=== PATIENT | male | born 1945 | race Caucasian/White ===

== ENCOUNTER 2018-10-17 05:10 | Outpatient (CLI) | payer MEDICARE, BC ==
[2018-10-17 17:39] LABS: Hemoglobin 14.6 g/dL (14.0-18.0); Mean Corpuscular HGB CONC 33.8 g/dL (32.0-36.0); Mean Corpuscular Hemoglobin 30.2 pg (27.0-31.0); Mean Corpuscular Volume 89.3 fL (78.0-98.0); Mean Platelet Volume 6.9 fL (7.4-10.4); Platelet Count 214 thou/uL (130-400); RBC Distribution Width 12.8 % (11.5-14.5); Red Blood Cell (RBC) Count 4.83 mill/uL (4.70-6.10); White Blood Cell (WBC) Count 8.7 thou/uL (4.8-10.8)
[2018-10-17 18:06] LABS: Anion Gap 11 mmol/L (10-20); BUN (Urea Nitrogen) 19 mg/dL (8.4-25.7); Calc. Creatinine Clearance 0 mL/min (70-130); Calcium 9.8 mg/dL (7.8-10.44); Carbon Dioxide 29 mmol/L (23-31); Chloride 103 mmol/L (98-107); Estimated GFR-MDRD 54; Glucose 110 mg/dL (83-110); Potassium 3.9 mmol/L (3.5-5.1); Sodium 139 mmol/L (136-145)
--- NOTE | 2018-10-20 16:34 | EKG ---
Test Reason : Blood Pressure : / mmHG Vent. Rate : 063 BPM Atrial Rate : 063 BPM P-R Int : 162 ms QRS Dur : 090 ms QT Int : 422 ms P-R-T Axes : 011 002 005 degrees QTc Int : 431 ms Sinus rhythm with Premature atrial complexes Minimal voltage criteria for LVH, may be normal variant Borderline ECG When compared with ECG of 31-OCT-2015 10:13, (Unconfirmed) Premature atrial complexes are now Present Confirmed by DR. Luis Angel DAI ([id number]) on 10/20/2018 4:33:45 PM Referred By: JASPER Confirmed By:DR. Luis Angel DAI
== END 2018-10-17 05:11 | disposition home or self-care (01) ==
LOC: LABBT 05:10
PROVIDERS: ATTEND Urology
DX: Z01.818 Encounter for other preprocedural examination (principal); Z12.5 Encounter for screening for malignant neoplasm of prostate; N40.1 Benign prostatic hyperplasia with lower urinary tract symptoms; N41.1 Chronic prostatitis; R39.14 Feeling of incomplete bladder emptying
CPT/HCPCS: 80048; 81001; 85027; 87086; 93005; 93010

== ENCOUNTER 2018-11-22 03:20 | Outpatient (CLI) | payer MEDICARE, BC ==
[2018-11-22 10:15] LABS: #Eosinphils 0.2 thou/uL (0.0-0.7); #Lymphocytes 1.8 thou/uL (1.20-3.40); #Monocytes 0.5 thou/uL (0.11-0.59); #Neutrophils 3.9 thou/uL (1.40-6.50); %Basophils 0.7 % (0.0-1.0); %Eosinophils 3.5 % (0.0-10.0); %Lymphocytes 27.8 % (21.0-51.0); %Monocytes 7.4 % (0.0-10.0); %Neutrophils 60.7 % (42.0-75.0); Mean Corpuscular HGB CONC 33.7 g/dL (32.0-36.0); Mean Corpuscular Hemoglobin 30.1 pg (27.0-31.0); Mean Corpuscular Volume 89.3 fL (78.0-98.0); Mean Platelet Volume 7.1 fL (7.4-10.4); Platelet Count 219 thou/uL (130-400); RBC Distribution Width 12.7 % (11.5-14.5); Red Blood Cell (RBC) Count 4.99 mill/uL (4.70-6.10); White Blood Cell (WBC) Count 6.4 thou/uL (4.8-10.8)
[2018-11-22 10:20] LABS: Prothrombin Time 13.1 SEC (12.0-14.7)
[2018-11-22 10:39] LABS: ALT (SGPT) 28 U/L (8-55); AST (SGOT) 20 U/L (5-34); Albumin 4.2 g/dL (3.4-4.8); Alkaline Phosphatase 64 U/L (40-150); Anion Gap 12 mmol/L (10-20); BUN (Urea Nitrogen) 17 mg/dL (8.4-25.7); Bilirubin, Total 0.8 mg/dL (0.2-1.2); Calc. Creatinine Clearance 0 mL/min (70-130); Calcium 9.9 mg/dL (7.8-10.44); Carbon Dioxide 27 mmol/L (23-31); Chloride 104 mmol/L (98-107); Estimated GFR-MDRD 56; Glucose 137 mg/dL (83-110); Potassium 3.8 mmol/L (3.5-5.1); Protein, Total 7.2 g/dL (5.8-8.1); Sodium 139 mmol/L (136-145)
== END 2018-11-22 03:21 | disposition home or self-care (01) ==
LOC: LABBT 03:20
PROVIDERS: ATTEND Internal Medicine Cardiovascular Disease
DX: Z01.812 Encounter for preprocedural laboratory examination (principal); R07.9 Chest pain, unspecified
CPT/HCPCS: 80053; 85025; 85610; 85730

== ENCOUNTER 2018-11-24 05:59 | Day surgery (SDC) | payer MEDICARE, BC ==
[2018-11-22 08:52] VITALS: BMI 37.1
[2018-11-24] MEDS ORDERED: Heparin 10,000 UNITS/1 ML VIAL ONE ×2 (06:45→08:15)
[2018-11-24] MEDS ORDERED: Nitroglycerin 100MG/250ML BOT 250 ML ONE (06:45)
[2018-11-24] MEDS ORDERED: Verapamil 5 MG/2 ML VIAL ONE (06:45)
[2018-11-24] MEDS ORDERED: Midazolam HCl 2 mg/2 ml Vial ONE (07:01)
[2018-11-24] MEDS ORDERED: Fentanyl 100 MCG/2 ML VIAL ONE (07:01)
[2018-11-24] MEDS ORDERED: Iopamidol 370 76% 100 ML VIAL ONE (08:42)
--- NOTE | 2018-11-24 15:25 | CON ---
DATE OF CONSULTATION: 11/24/2018 REQUESTING PHYSICIAN: Dr. Griffiths. PRIMARY CARE PHYSICIAN: Dr. Diogenes Lindo. CHIEF COMPLAINT: Chest pain. HISTORY OF PRESENT ILLNESS: The patient is a 73-year-old diabetic man with hypertension. For the last 2 or 3 months, he has been having exertional chest and back discomfort. He has also noticed that when he walks and gets this discomfort that it is associated with an inordinate amount of belching. He does not have any radiation of discomfort to his throat, jaws, shoulders, or arms, and does not have any associated shortness of breath, diaphoresis, or nausea. About 3 years ago, he had an episode of retrosternal chest discomfort that lasted for about 3 days and was associated with radiation discomfort to his throat. He was observed overnight here and had a negative stress test. He recently had a stress test to evaluate this that showed a resting EF of 44% and stress EF of 50%, which corresponded with an echocardiogram showing an EF of 45% to 50% PAST MEDICAL HISTORY: Significant for hypertension, diabetes, and benign prostatic hypertrophy. HOME MEDICATIONS: 1. Clonidine 0.1 mg b.i.d. 2. Maxzide (triamterene 75 mg/hydrochlorothiazide 50 mg) 1/2 tablet a day. 3. Silodosin 8 mg a day. 4. Finasteride 5 mg a day. 5. Prilosec 20 mg a day. 6. Biotin 10 mg a day. 7. He had been on metformin but has recently gotten off it because of good hemoglobin A1c control and nausea associated with metformin. SOCIAL HISTORY: He has a very distant history of smoking, having quit in 1973. ALLERGIES AND INTOLERANCES: He reports lisinopril, Norvasc, and Biaxin all cause hyperesthesias that are uncomfortable. Clindamycin causes stomach cramps. He had taken multiple rounds of ciprofloxacin for prostatitis, but says that he began developing a "tendinopathy" on the tops of his feet and quit taking it. FAMILY HISTORY: Significant for his mother having diabetes and was diagnosed with coronary disease at age 90 shortly before her . He has a brother with colon cancer and another brother with diabetes. REVIEW OF SYSTEMS: Negative for any eye, speech, facial, or extremity symptoms consistent with TIAs. It is negative for any shortness of breath or orthopnea. It is positive for urinary obstructive symptoms (he was being evaluated for a TURP when reports of this chest pain prompted cardiac evaluation), positive for burning and tingling in his feet. PHYSICAL EXAMINATION: GENERAL: He is in no distress. He is 6 feet 2 inches, weighs 274 pounds, heart rate 61, blood pressure 168/88, temperature 98.5, room air O2 saturations are 95% to 97%. HEENT: He has what appears represents xanthelasma primarily around his right eye. NECK: He has no JVD. No carotid bruits. CHEST: Clear to auscultation. HEART: He has regular rate and rhythm without murmur or gallops. ABDOMEN: Soft and nontender. He has palpable radial and femoral pulses bilaterally without bruits. He has palpable posterior tibials bilaterally and a palpable right dorsalis pedis. He has some spider type varicosities at the ankle and some mild venous stasis pigmentation changes, a little bit more prominent on the right ankle than on the left. NEUROLOGIC: Grossly nonfocal. LABORATORY DATA: Laboratory exam shows a white count of 6.4, hemoglobin 15.0, hematocrit 44.5, platelets 219,000. PT is 13.1, INR 1.0, PTT is 30.0. Electrolytes were normal. Glucose 137, BUN 17, creatinine 1.27 with an estimated GFR of 56, calcium is 9.9, protein 7.2, albumin 4.2. LFTs were normal. Triglyceride 65, cholesterol 176, LDL 141, HDL 22. His urinalysis from about a month ago showed no proteinuria. Chest x-ray from about 3 years ago, showed some slight prominence in the left pulmonary artery, otherwise was reasonably normal. Cardiac catheterization shows a right-dominant system with about 60% distal right coronary lesion and a subtotal stenosis in the proximal PDA. A relatively small posterolateral system. He has some mild calcifications in the proximal left side system with some diffuse irregularity throughout the LAD. In the proximal circumflex system he has about 60% mid LAD lesion with a subtotal stenosis of a fairly high and large first diagonal. He has about a 60% or 70% long lesion in the circumflex after a small OM2 leading to a large OM3 that goes out towards the apex. By my estimation, LVEF is around 50% with some hypokinesis or perhaps even akinesis of a segment of the inferior wall. LV pressure was 130/4 with an EDP of 11. Aortic pressure on pullback was 191/53 for a mean of 82. IMPRESSION AND PLAN: Three-vessel coronary disease in a diabetic with exertional angina. He should be low risk for surgical revascularization which should serve him quite well in the long run. He wishes to proceed at earliest mutual convenience and we will arrange for his surgery early next week. Job ID: [id number]
== END 2018-11-24 13:12 | disposition home or self-care (01) ==
LOC: CCL 05:59
PROVIDERS: ATTEND Internal Medicine Cardiovascular Disease
PROC: 4A023N7 Measurement of Cardiac Sampling and Pressure, Left Heart, Percutaneous Approach (ICD-10-PCS; principal; 2018-11-24)
PROC: B2111ZZ Fluoroscopy of Multiple Coronary Arteries using Low Osmolar Contrast (ICD-10-PCS; 2018-11-24)
DX: I25.10 Atherosclerotic heart disease of native coronary artery without angina pectoris (principal); I25.84 Coronary atherosclerosis due to calcified coronary lesion; I10 Essential (primary) hypertension; E11.9 Type 2 diabetes mellitus without complications; Z87.891 Personal history of nicotine dependence; Z79.82 Long term (current) use of aspirin; Z79.899 Other long term (current) drug therapy; Z88.1 Allergy status to other antibiotic agents; Z88.8 Allergy status to other drugs, medicaments and biological substances
CPT/HCPCS: 80061; 93458; 99152; 99153; C1769; J1644; J2250; J3010; Q9967

== ENCOUNTER 2018-11-28 05:43 | Inpatient (IN) | payer MEDICARE, BC ==
[2018-11-28] MEDS ORDERED: Heparin 5,000 UNITS/ML VIAL ONE ×2 (06:26→15:30)
[2018-11-28] MEDS ORDERED: Albumin 5% 0 ML ONE (06:28)
[2018-11-28] MEDS ORDERED: Heparin 10,000 UNITS/1 ML VIAL 30,000 UNITS in Sodium Chloride 0.9% 1,000 ML FS SCH (06:30)
[2018-11-28] MEDS ORDERED: Dexmedetomidine 200 MCG/2 ML VIAL ONE (06:45)
[2018-11-28] MEDS ORDERED: Vecuronium 10 MG VIAL ONE ×2 (06:45→15:30)
[2018-11-28] MEDS ORDERED: Midazolam HCl 5 mg/5 ml Vial ONE (06:45)
[2018-11-28] MEDS ORDERED: Fentanyl 250 MCG/5 ML VIAL ONE (06:45)
[2018-11-28] MEDS ORDERED: Norepinephrine 8 MG/0.9% NS 250 ML ONE (06:45)
[2018-11-28] MEDS ORDERED: Midazolam HCl 2 mg/2 ml Vial ONE (07:11)
[2018-11-28] MEDS ORDERED: Mag-Al 1200 mg/1200 mg/30 ML UDCUP PO PRN (07:27)
[2018-11-28] MEDS ORDERED: Hetastarch 6% 500 ML 500 ML IVPB PRN (07:27)
[2018-11-28] MEDS ORDERED: Bisacodyl 5 MG TAB PO PRN (07:27)
[2018-11-28] MEDS ORDERED: Bisacodyl 10 MG SUPP PR PRN (07:27)
[2018-11-28] MEDS ORDERED: HYDROcodone/Acetaminophen 5/325 mg Tablet PO PRN (07:27)
[2018-11-28] MEDS ORDERED: Acetaminophen 325 MG TAB PO PRN (07:27)
[2018-11-28] MEDS ORDERED: Post-Op Insulin Drip Protocol IVPB ONE (07:27)
[2018-11-28] MEDS ORDERED: Guaifenesin DM 100-10/5 ML UDCUP PO PRN (07:27)
[2018-11-28] MEDS ORDERED: hydrALAZINE 20 MG/ML VIAL SLOW IVP PRN (07:27)
[2018-11-28] MEDS ORDERED: Fentanyl 100 MCG/2 ML VIAL SLOW IVP PRN (07:27)
[2018-11-28] MEDS ORDERED: Promethazine HCl 25 MG/ML VIAL IM PRN (07:27)
[2018-11-28] MEDS ORDERED: Potassium Chloride 20 MEQ/100 ML PREMIX BAG IVPB PRN (07:27)
[2018-11-28] MEDS ORDERED: Norepinephrine 8 MG/0.9% NS 250 ML IVPB PRN (07:27)
[2018-11-28] MEDS ORDERED: Nitroglycerin 50 MG/250 ML BOT 250 ML IVPB PRN (07:27)
[2018-11-28] MEDS ORDERED: Dextrose 50% Abboject 50 ML SYRINGE SLOW IVP PRN (08:56)
[2018-11-28] MEDS ORDERED: HUMULIN R 100 UNITS in Sodium Chloride 0.9% 100 ML IVPB SCH (08:56)
[2018-11-28] MEDS ORDERED: Dextrose 5% in Water 1,000 ML IV PRN (08:56)
[2018-11-28] MEDS ORDERED: Insulin Regular 300 UNITS/3 ML VIAL ONE (10:12)
[2018-11-28 13:14] LABS: Actual Bicarbonate (HCO3a) 22.3 mEq/L (22-28); Base Excess (BEa) -4.4 mEq/L (-2.0 to +3.0); CO2 Tension 47.4 mmHg (35.0-45.0); Calcium, Ionized 1.05 mmol/L (1.12-1.30); Carboxyhemoglobin (COHb) 0.9 gm% (0.0-3.0); Hemoglobin (Hb) 13.8 g/dL (14.0-18.0); O2 Tension (PaO2) 62.1 mmHg (> 70.0); Potassium - ABG Lab 4.04 mmol/L (3.70-5.30); pH, Arterial 7.29 (7.35-7.45)
[2018-11-28 13:16] LABS: Puncture Site ALINE
[2018-11-28 13:28] LABS: INR-International Normal Ratio 1.4; PTT 30.6 SEC (22.9-36.1)
--- NOTE | 2018-11-28 13:29 | RAD ---
AP view chest. HISTORY: Postop heart surgery AP view chest obtained on 11/28/2018. Comparison made to previous exam from 11/27/2018. Sternotomy wires seen. There is a left subclavian central line in place. Mediastinal drain is in place. The patient has been intubated. The lungs are well aerated. No evidence of acute intrathoracic abnormality seen. IMPRESSION: Pulmonary vascular congestion.
[2018-11-28] MEDS: Finasteride 5 MG TAB PO SCH (13:44)
[2018-11-28] MEDS: Famotidine/PF 20 mg/2ml Vial SLOW IVP SCH ×2 (13:44→20:45)
[2018-11-28] MEDS: Aspirin 325 MG TAB PO SCH (13:44)
[2018-11-28] MEDS: Sodium Chloride 0.9% 1,000 ML IV SCH ×2 (13:44→20:45)
[2018-11-28] MEDS: Silodosin 8 MG CAP PO SCH (13:44)
[2018-11-28] MEDS: Docusate 100 MG CAP PO SCH ×2 (13:44→20:45)
[2018-11-28 13:50] LABS: Anion Gap 13 mmol/L (10-20); BUN (Urea Nitrogen) 16 mg/dL (8.4-25.7); Calc. Creatinine Clearance 103 mL/min (70-130); Calcium 7.6 mg/dL (7.8-10.44); Carbon Dioxide 21 mmol/L (23-31); Chloride 109 mmol/L (98-107); Estimated GFR-MDRD 63; Glucose 159 mg/dL (83-110); Potassium 4.2 mmol/L (3.5-5.1); Sodium 139 mmol/L (136-145)
[2018-11-28] MEDS: Fentanyl 100 MCG/2 ML VIAL SLOW IVP PRN ×4 (13:54→23:08)
[2018-11-28 14:07] LABS: Band 36 % (5-11); Hemoglobin 13.4 g/dL (14.0-18.0); Lymphocytes 4 % (21-51); MDiff Complete? YES; Mean Corpuscular HGB CONC 33.8 g/dL (32.0-36.0); Mean Corpuscular Hemoglobin 30.6 pg (27.0-31.0); Mean Corpuscular Volume 90.5 fL (78.0-98.0); Mean Platelet Volume 7.2 fL (7.4-10.4); Metamyelocyte 2 % (0-0); Monocytes 6 % (0-10); Neutrophil 51 % (42-75); Platelet Count 249 thou/uL (130-400); Platelet Morphology Comment Appears Adequate; RBC Distribution Width 12.6 % (11.5-14.5); Reactive Lymphocytes 1 % (0-10); Red Blood Cell (RBC) Count 4.39 mill/uL (4.70-6.10)
[2018-11-28] MEDS ORDERED: Sodium Chloride 0.9% 500 ML IVPB SCH (14:30)
[2018-11-28 14:33] LABS: Actual Bicarbonate (HCO3a) 17.3 mEq/L (22-28); Base Excess (BEa) -8.9 mEq/L (-2.0 to +3.0); CO2 Tension 38.6 mmHg (35.0-45.0); Calcium, Ionized 1.03 mmol/L (1.12-1.30); Carboxyhemoglobin (COHb) 1.2 gm% (0.0-3.0); Hemoglobin (Hb) 13.7 g/dL (14.0-18.0); O2 Tension (PaO2) 71.2 mmHg (> 70.0); Potassium - ABG Lab 4.07 mmol/L (3.70-5.30); pH, Arterial 7.27 (7.35-7.45)
[2018-11-28 14:35] LABS: Puncture Site LINE
[2018-11-28] MEDS ORDERED: Sodium Bicarb 50 MEQ/50 ML VIAL ONE ×2 (14:45→15:30)
[2018-11-28] MEDS ORDERED: Sodium Bicarb 50 MEQ/50 ML VIAL IVP SCH (15:00)
[2018-11-28] MEDS ORDERED: Amiodarone 450 MG, Admixture Fee 1 EACH in Dextrose 5% in Water 250 ML IVPB SCH (15:00)
[2018-11-28] MEDS ORDERED: Papaverine 60 MG/2 ML VIAL ONE (15:30)
[2018-11-28] MEDS ORDERED: Aminocaproic Acid 5 GM/20 ML VIAL ONE ×2 (15:30→15:59)
[2018-11-28] MEDS ORDERED: Cardioplegic Soln 1,000 ML BAG ONE (15:30)
[2018-11-28] MEDS ORDERED: Glycopyrrolate 0.2 MG/ML 5 ML SYRINGE ONE (15:30)
[2018-11-28] MEDS ORDERED: Thrombin 5000 UNITS/5 ML VIAL ONE (15:30)
[2018-11-28] MEDS ORDERED: Norepinephrine 4 MG/4 ML VIAL ONE (15:30)
[2018-11-28] MEDS ORDERED: Lidocaine 1% PF 5 ML VIAL ONE (15:30)
[2018-11-28] MEDS ORDERED: PROPOFOL 200 MG/20 ML VIAL ONE (15:30)
[2018-11-28] MEDS ORDERED: Calcium Chloride 1 GM/10 ML Abboject SYRINGE ONE (15:30)
[2018-11-28] MEDS ORDERED: Heparin 30,000 units/30 ml VIAL ONE ×2 (15:30→15:59)
[2018-11-28 15:49] LABS: Actual Bicarbonate (HCO3a) 19.7 mEq/L (22-28); Base Excess (BEa) -5.3 mEq/L (-2.0 to +3.0); CO2 Tension 36.5 mmHg (35.0-45.0); Carboxyhemoglobin (COHb) 1.1 gm% (0.0-3.0); Hemoglobin (Hb) 13.5 g/dL (14.0-18.0); Potassium - ABG Lab 3.85 mmol/L (3.70-5.30); pH, Arterial 7.35 (7.35-7.45)
[2018-11-28 15:50] LABS: ALV-art Gradient 234.875 (0-20); Puncture Site ALINE
[2018-11-28] MEDS ORDERED: Potassium Chloride 60 MEQ/30 ML VIAL ONE (15:59)
[2018-11-28] MEDS ORDERED: Protamine Sulfate 250 MG/25 ML VIAL ONE (15:59)
[2018-11-28] MEDS ORDERED: Nitroglycerin 50 MG/250 ML BOT ONE (15:59)
[2018-11-28] MEDS ORDERED: Mannitol 12.5 GM/50 ML ONE (15:59)
[2018-11-28] MEDS ORDERED: Magnesium 5 GM/10 ML VIAL ONE (15:59)
[2018-11-28] MEDS ORDERED: Lidocaine 2% PF 100 mg/5 ml Syringe ONE (15:59)
--- NOTE | 2018-11-28 17:59 | CON ---
DATE OF CONSULTATION: 11/28/2018 REASON FOR CONSULTATION: Post CABG. HISTORY OF PRESENT ILLNESS: Mr. Canales is a very pleasant 73-year-old white gentleman, who comes to the hospital today for a planned bypass surgery. He had a heart catheterization on Tuesday, 11/24. He was found to have multivessel disease. Dr. Santana evaluated him and scheduled him for bypass surgery earlier today. He had a stress that showed an EF of 44% at rest, went up to 50% with stress. Echo showed EF of 45% to 50% as well. He underwent the procedure earlier today. On my evaluation today, he remains intubated and sedated. PAST MEDICAL HISTORY: 1. Hypertension. 2. Diabetes. 3. BPH. 4. CAD as above. OUTPATIENT MEDICATIONS: Include: 1. Clonidine 0.1 mg b.i.d. 2. Maxzide 75/50 half tablet a day. 3. Silodosin. 4. Finasteride. 5. Prilosec. 6. Biotin. 7. Metformin. SOCIAL HISTORY: Quit smoking in 1973. No alcohol or drugs. ALLERGIES: LISINOPRIL, NORVASC, BIAXIN, CLINDAMYCIN, CIPRO. FAMILY HISTORY: Mother with diabetes and coronary artery disease at age 90. Brother with colon cancer. REVIEW OF SYSTEMS: A 12-point review of systems was done and was found to be negative unless stated in history of present illness. PHYSICAL EXAMINATION: VITAL SIGNS: Temperature 98.0, pulse 95, respiratory rate 14, saturating 97% on 50% FiO2. GENERAL: Sedated and intubated. LUNGS: Have coarse breath sounds. CARDIOVASCULAR: Distant heart sounds, two component rub. ABDOMEN: Soft. EXTREMITIES: 1+ edema. SKIN: Warm and dry. LABORATORY DATA: Laboratory work was reviewed. White count of 35, hemoglobin of 13, hematocrit of 39, platelet count of 249. Coags, ABG were reviewed. Chemistries were reviewed. Chest x-ray done post bypass showed pulmonary vascular congestion. ASSESSMENT: 1. Status post coronary artery bypass grafting. 2. Acute hypoxic respiratory insufficiency. 3. Acute systolic heart failure. 4. Coronary artery disease. 5. Diabetes. PLAN: 1. Continue supportive care for now. He was a little acidotic. He will remain on the ventilator until tomorrow. 2. Currently, he is on Levophed for hypotension. Hopefully, we will be able to wean this off overnight. 3. Aspirin and statin for life. Thank you for letting me to participate in the care of your patient. We will follow. Job ID: [id number]
--- NOTE | 2018-11-28 18:59 | OP ---
DATE OF PROCEDURE: 11/28/2018 PROCEDURE PERFORMED: Coronary artery bypass grafting x4 with left internal mammary artery to the distal LAD, reverse greater saphenous vein graft from the aorta to the diagonal to the obtuse marginal into the PDA. PREOPERATIVE DIAGNOSIS: Coronary artery disease. POSTOPERATIVE DIAGNOSIS: Coronary artery disease. SURGEON: Prery Santana MD BIOTECH PRODUCTION SPECIALIST: Tyler. ANESTHESIA: General endotracheal anesthesia. INDICATIONS: The patient is a 73-year-old diabetic man who has chest and some back discomfort on exertion associated with an inordinate amount of belching. Stress testing was abnormal and cardiac catheterization demonstrated three-vessel coronary disease with very high-grade lesions in a large diagonal and in a PDA and more modest lesions in the proximal LAD and the circumflex system. He is now taken to the operating room for revascularization. FINDINGS: Pump time 97 minutes. Cross-clamp time 43 minutes. The TERRIE had a distal dissection, otherwise was of good quality. Saphenous vein was of good quality. All of the coronaries were diffusely involved with firm leathery plaque. The LAD was grafted near the apex at a relative soft spot of about 1 to 1.5 mm vessel. The diagonal and OM were about 2 mm. The PDA was grafted fairly distally and was a 1.5 mm vessel. The pericardium was closed. NARRATIVE REPORT: After informed consent was obtained, the patient was taken to the operating room, placed in supine position on the operating table. After the induction of general anesthesia, the patient's saphenous vein in his left lower extremity was ultrasonographically mapped and marked. His left upper chest was prepped and draped in sterile fashion and a triple lumen central line kit was used to place a left subclavian line through the Seldinger technique. All 3 ports easily aspirated and flushed. The line was secured. The patient's torso, groins, and lower extremities were prepped and draped in sterile fashion. Saphenous vein was exposed a little above the knee using that as a port site. It was then endoscopically harvested from groin to mid calf using stab incisions for the proximal and distal ligation and division points, it was prepared for use as a graft and the port site was closed in layers of subcutaneous and subcuticular Vicryl. A median sternotomy was performed. The left internal mammary artery was mobilized as a skeletonized in-situ graft from the level of the xiphoid to the level of the subclavian vein through an extrapleural exposure. The patient was heparinized and the mammary was ligated and divided distally. There was good flow through the mammary. Very distally, it was small, but after instillation with papaverine solution it all appeared to be of reasonably good size except the most extreme distal tip. The TERRIE retractor was placed with a Steward retractor. The medial reflections of the pleura were mobilized from apex to the hilum and then the pericardium was opened and marsupialized. The aorta was palpated and was soft. A double concentric pursestring of 2-0 Ethibond was placed in the ascending aorta just beyond the pericardial reflection and a single pursestring was placed in the right atrial appendage. Aortic and venous cannulae were inserted and secured by their pursestrings. Cardiopulmonary bypass was instituted and the patient was systemically cooled. The plane between the aorta and the pulmonary artery was developed. The heart was examined. The vessels to be bypassed were identified. A longitudinal slit was made in the pericardium anterior to the left phrenic nerve through which the mammary could be passed. An aortic cross-clamp was applied and cardioplegia was administered through an aortic root needle. When arrest had been achieved, attention was turned to the PDA. It was exposed and opened with a Wheat[place] blade and Gratiot scissors and reverse greater saphenous vein was anastomosed there end-to-side with running Prolene suture. Testing the anastomosis by flushing cold cardioplegia down the graft. Attention was then turned to the obtuse marginal and the diagonal, which were each grafted in a similar fashion. The LAD was then opened. The plaque was more diffusely involved on the LAD when the other coronaries were somewhat firmer. It was opened fairly distally near the apex at a relative soft spot. Distally, there was some eccentric spiraling plaque. The distal tip of the mammary which had been clipped was transected and it could be appreciated that there was a distal dissection. The spatulation was extended sufficiently proximally to be able to excise the dissected portion. It was then anastomosed to the LAD end-to-side with running 7-0 Prolene. Doppler interrogation identified flow in LAD both distally and proximally from the anastomosis. The aortic cross-clamp was replaced with a partial occluding clamp and aortotomy was made in the ascending aorta with a scalpel and punch incorporating the root needle site for one of its aortotomies. The PDA graft was anastomosed to the most proximal aortotomy and the diagonal and OM grafts were anastomosed to the middle and distal aortotomies respectively. All three anastomoses were marked with small hemoclips. The partial occluding clamp was removed and the vein grafts were de-aired. The bulldogs were removed from them and the anastomoses were inspected for hemostasis. A posterior pericardial drain was brought out through a separate incision and secured with a suture. Right atrial and right ventricular temporary epicardial pacing wires were placed. The patient was then from cardiopulmonary bypass. Aortic and venous cannulae were removed and the pursestring secured. Protamine was administered. When hemostasis was adequate, an anterior mediastinal drain was placed. The pericardium was easily closed over with running Vicryl. The cut surfaces of the sternum were treated with platelet rich GPS and vancomycin paste. The sternum was reapproximated with #7 stainless steel wires. The soft tissues were irrigated and platelet poor GPS was applied. The fascia was closed over the wires with #1 Vicryl. The subcutaneous tissue was reapproximated with 2-0 Vicryl and the skin was closed with a running 3-0 Vicryl subcuticular suture. The wounds were dressed and the patient was taken to the intensive care in stable condition. Job ID: [id number]
[2018-11-28 19:58] LABS: Hemoglobin 12.9 g/dL (14.0-18.0)
[2018-11-28] MEDS ORDERED: Atorvastatin Calcium 20 MG TAB PO SCH (21:00)
[2018-11-28] MEDS: Morphine 2 MG/ML SYRINGE SLOW IVP PRN (21:49)
--- NOTE | 2018-11-29 00:17 | CON ---
DATE OF CONSULTATION: 11/28/2018 HISTORY OF PRESENT ILLNESS: Parker is a 73-year-old male. I was consulted because of his presence in the Critical Care Unit after heart surgery. Shortly before I arrived, my associated adjusted mechanical ventilation to a pressure control mode. He was tachypneic and not completely exhaling. Once he was switched to pressure control ventilation, he was able to exhale and his blood pressure came back up. He was running a pressure in the 90s when I arrived, so I gave him a 500 mL bolus of saline. He is receiving albumin as well. The operative note is not available yet. PAST MEDICAL HISTORY: 1. Remarkable for reflux disease. 2. Degenerative arthritis. 3. Hypertension. 4. Chronic kidney disease. 5. Peripheral neuropathy. 6. History of tonsillectomy. 7. History of sinus surgery. ALLERGIES: HE REPORTS ALLERGIES TO CLEOCIN, BIAXIN, NORVASC, AND LISINOPRIL. SOCIAL HISTORY: Prior to admission, he is a former smoker, had smoked since the early 70s. He is not a drinker. According to old records, he is retired. FAMILY HISTORY: Positive for vascular disease, hypertension, and diabetes. REVIEW OF SYSTEMS: Not obtainable. PHYSICAL EXAMINATION: GENERAL: He is intubated. VITAL SIGNS: Blood pressure 106/59 now, heart rate 92, respiratory rate is 20, oximetry is 97. HEENT: Pupils are equal. Sclerae anicteric. NECK: Supple. CHEST: Mediastinal tubes are in place. He has equal breath sounds bilaterally. HEART: Regular rhythm. ABDOMEN: Soft. EXTREMITIES: Warm. IMAGING DATA: Postop chest x-ray was reviewed, alveolar infiltrates were seen. This is suggestive of early edema in the left perihilar area. IMPRESSION: Status post coronary artery bypass grafting with hypotension secondary to breath stacking with mechanical ventilation. This is resolved with adjustment of ventilator. He still has mild metabolic acidosis, so he may not be able to wean per protocol. I will be happy to follow the other physicians caring for him. CRITICAL CARE TIME: 30 minutes. Job ID: [id number] MTDD
[2018-11-29] MEDS: Morphine 2 MG/ML SYRINGE SLOW IVP PRN (01:07)
[2018-11-29] MEDS: Fentanyl 100 MCG/2 ML VIAL SLOW IVP PRN ×2 (03:29→05:48)
[2018-11-29 04:15] LABS: Anion Gap 12 mmol/L (10-20); BUN (Urea Nitrogen) 18 mg/dL (8.4-25.7); Calc. Creatinine Clearance 85 mL/min (70-130); Calcium 7.9 mg/dL (7.8-10.44); Carbon Dioxide 24 mmol/L (23-31); Chloride 110 mmol/L (98-107); Estimated GFR-MDRD 51; Glucose 164 mg/dL (83-110); Potassium 4.1 mmol/L (3.5-5.1); Sodium 142 mmol/L (136-145)
[2018-11-29 04:23] LABS: #Lymphocytes 1.4 thou/uL (1.20-3.40); #Neutrophils 13.8 thou/uL (1.40-6.50); %Eosinophils 0.1 % (0.0-10.0); %Lymphocytes 8.3 % (21.0-51.0); %Monocytes 11.7 % (0.0-10.0); %Neutrophils 79.9 % (42.0-75.0); Hemoglobin 12.1 g/dL (14.0-18.0); Mean Corpuscular HGB CONC 33.6 g/dL (32.0-36.0); Mean Corpuscular Hemoglobin 30.5 pg (27.0-31.0); Mean Corpuscular Volume 90.8 fL (78.0-98.0); Mean Platelet Volume 7.1 fL (7.4-10.4); Platelet Count 238 thou/uL (130-400); RBC Distribution Width 12.8 % (11.5-14.5); Red Blood Cell (RBC) Count 3.97 mill/uL (4.70-6.10); White Blood Cell (WBC) Count 17.3 thou/uL (4.8-10.8)
--- NOTE | 2018-11-29 07:47 | RAD ---
AP VIEW CHEST: HISTORY: Open heart surgery. AP view chest obtained on 11/29/2018. Comparison made to previous exam from 11/28/2018. FINDINGS: AP view chest demonstrates sternotomy wires seen. A left subclavian central line is seen. Again, endo tracheal tube is in good position. There has been placement of a NG tube. Mild cardiomegaly seen. Pulmonary vascular congestion seen. No evidence of pneumonia or pneumothorax seen. Area of atelectasis present in the right upper lobe. IMPRESSION: Interval placement of a NG tube. Transcribed Date/Time: 11/29/2018 8:14 AM
[2018-11-29 08:12] LABS: Actual Bicarbonate (HCO3a) 22.9 mEq/L (22-28); Base Excess (BEa) -1.3 mEq/L (-2.0 to +3.0); CO2 Tension 36.8 mmHg (35.0-45.0); Calcium, Ionized 1.07 mmol/L (1.12-1.30); Carboxyhemoglobin (COHb) 0.6 gm% (0.0-3.0); Hemoglobin (Hb) 12.1 g/dL (14.0-18.0); O2 Tension (PaO2) 72.1 mmHg (> 70.0); Potassium - ABG Lab 3.73 mmol/L (3.70-5.30); pH, Arterial 7.41 (7.35-7.45)
[2018-11-29 08:13] LABS: Puncture Site RRA
[2018-11-29] MEDS: Famotidine/PF 20 mg/2ml Vial SLOW IVP SCH ×2 (09:38→20:38)
[2018-11-29] MEDS: Docusate 100 MG CAP PO SCH ×2 (09:38→20:38)
--- NOTE | 2018-11-29 09:52 | PRG ---
DATE OF SERVICE: 11/29/2018 SUBJECTIVE: Mr. Canales did well overnight. He is awake and alert. His minute volume was 8 L a minute. He was switched to pressure support of 5, PEEP of 5. Followup blood gas was done. This showed a pH of 7.41, CO2 of 36, PO2 of 72. That was on 30% FiO2 with 5 of pressure support, 5 of PEEP. PHYSICAL EXAMINATION: LUNGS: Clear HEART: Regular rhythm. S1, S2 normal. ABDOMEN: Soft and nontender. EXTREMITIES: Without edema. IMAGING DATA: Chest radiograph shows some patchy atelectasis in the upper lobe. ASSESSMENT AND PLAN: I felt he is a candidate for weaning and extubation. This has been done successfully. He has had no postextubation respiratory distress. CRITICAL CARE TIME: 30 minutes. Job ID: [id number]
[2018-11-29] MEDS: Silodosin 8 MG CAP PO SCH ×2 (10:16→17:30)
[2018-11-29] MEDS: Aspirin 325 MG TAB PO SCH ×2 (10:17→17:30)
[2018-11-29] MEDS: Finasteride 5 MG TAB PO SCH ×2 (10:17→17:30)
[2018-11-29] MEDS: HYDROcodone/Acetaminophen 5/325 mg Tablet PO PRN (10:27)
[2018-11-29] MEDS: Ondansetron PF 4 MG/2 ML Vial IVP PRN (10:33)
[2018-11-29] MEDS: Sodium Chloride 0.9% 1,000 ML IV SCH (11:24)
[2018-11-29] MEDS ORDERED: Insulin Glargine 30 UNITS in Pre-Filled Syringe SC SCH (14:30)
[2018-11-29] MEDS: Insulin Regular 300 UNITS/3 ML VIAL SC PRN ×3 (15:23→22:28)
--- NOTE | 2018-11-29 17:55 | PDOC.CTH ---
Cardiology Progress Note - Subjective He is doing better. he is extubated. Off pressors or innotropes. - Objective Vital Signs Temp Pulse Resp BP Pulse Ox 11/29/18 16:00 99.8 F H 11/29/18 12:00 98.7 F 11/29/18 08:00 99.0 F 93 L 11/29/18 07:17 88 126/97 H 11/29/18 06:00 16 Weight 276 lb 3.827 oz 11/28/18 11/29/18 11/30/18 06:59 06:59 06:59 Intake Total 2116 1755.9 Output Total 1165 710 Balance 951 1045.9 - Physical Examination General/Neuro: alert & oriented x3, NAD Neck: no JVD present Lungs: unlabored respirations Heart: RRR Abdomen: NT/ND Extremities: other: (no edema) - Telemetry Telemetry Rhythm: NSR - Labs Result Diagrams: 11/29/18 03:40 11/29/18 03:40 - Assessment/Plan 1. Multivessel CAD. 2. S/P CABG 3. CAD. 4. Hx of HTN 5. Hx of DMT2 PLAN: - Continue post op care. - Aspirin and statin for life. - BB and ACEI once BP allows.
[2018-11-29] MEDS: Atorvastatin Calcium 40 MG TAB PO SCH (20:38)
[2018-11-30] MEDS: HYDROcodone/Acetaminophen 5/325 mg Tablet PO PRN ×2 (04:11→13:19)
[2018-11-30 05:46] LABS: #Eosinphils 0.1 thou/uL (0.0-0.7); #Lymphocytes 1.9 thou/uL (1.20-3.40); #Monocytes 1.4 thou/uL (0.11-0.59); #Neutrophils 11.9 thou/uL (1.40-6.50); %Basophils 0.1 % (0.0-1.0); %Eosinophils 0.4 % (0.0-10.0); %Lymphocytes 12.4 % (21.0-51.0); %Monocytes 8.9 % (0.0-10.0); %Neutrophils 78.2 % (42.0-75.0); Mean Corpuscular HGB CONC 33.8 g/dL (32.0-36.0); Mean Corpuscular Hemoglobin 30.2 pg (27.0-31.0); Mean Corpuscular Volume 89.5 fL (78.0-98.0); Mean Platelet Volume 7.6 fL (7.4-10.4); Platelet Count 198 thou/uL (130-400); RBC Distribution Width 12.6 % (11.5-14.5); Red Blood Cell (RBC) Count 3.29 mill/uL (4.70-6.10); White Blood Cell (WBC) Count 15.2 thou/uL (4.8-10.8)
[2018-11-30 06:11] LABS: Anion Gap 11 mmol/L (10-20); BUN (Urea Nitrogen) 19 mg/dL (8.4-25.7); Calc. Creatinine Clearance 92 mL/min (70-130); Carbon Dioxide 26 mmol/L (23-31); Chloride 103 mmol/L (98-107); Estimated GFR-MDRD 55; Glucose 138 mg/dL (83-110); Potassium 3.8 mmol/L (3.5-5.1); Sodium 136 mmol/L (136-145)
--- NOTE | 2018-11-30 07:51 | RAD ---
PORTABLE CHEST: Date: 11/30/18 COMPARISON: Prior day's study. HISTORY: Postop open heart surgery. FINDINGS: Endotracheal and NG tubes have been removed. Postop sternotomy changes and left subclavian line are a gain noted. Parenchymal changes in the left base are less pronounced than on the prior exam. IMPRESSION: Interval removal of endotracheal and NG tubes. Otherwise essentially stable exam. POS: [facility]
[2018-11-30] MEDS ORDERED: Aspirin 325 mg Enteric Coated Tablet PO SCH (09:00)
[2018-11-30] MEDS: Sodium Chloride 0.9% 1,000 ML IV SCH (09:17)
[2018-11-30] MEDS ORDERED: Mineral Oil ENEMA PR PRN (09:19)
[2018-11-30] MEDS ORDERED: Mag-Al 1200 mg/1200 mg/30 ML UDCUP PO PRN (09:19)
[2018-11-30] MEDS ORDERED: Bisacodyl 5 MG TAB PO PRN (09:19)
[2018-11-30] MEDS ORDERED: Nitroglycerin 0.4 MG TAB (25 Tab Bottle) SL PRN (09:19)
[2018-11-30] MEDS ORDERED: Dextrose 50% Abboject 50 ML SYRINGE SLOW IVP PRN ×2 (09:19)
[2018-11-30] MEDS ORDERED: Guaifenesin DM 100-10/5 ML UDCUP PO PRN (09:19)
[2018-11-30] MEDS ORDERED: Bisacodyl 10 MG SUPP PR PRN (09:19)
[2018-11-30] MEDS ORDERED: Artificial Tears 18 DROP/0.9 ML EA EYE PRN (09:19)
[2018-11-30] MEDS ORDERED: Dextrose 5% in Water 1,000 ML IV PRN (09:19)
[2018-11-30] MEDS ORDERED: Zolpidem Tartrate 5 MG TAB PO PRN (09:19)
[2018-11-30] MEDS ORDERED: diphenhydrAMINE 25 MG CAP PO PRN (09:19)
[2018-11-30] MEDS: Docusate 100 MG CAP PO SCH ×2 (09:33→20:46)
[2018-11-30] MEDS: Famotidine/PF 20 mg/2ml Vial SLOW IVP SCH (10:03)
[2018-11-30] MEDS: Carvedilol 3.125 MG TAB PO SCH ×2 (10:05→17:11)
[2018-11-30] MEDS: Insulin Regular 300 UNITS/3 ML VIAL SC PRN (11:21)
--- NOTE | 2018-11-30 16:25 | PRG ---
DATE OF SERVICE: 11/30/2018 SUBJECTIVE: Mr. Canales is doing well. He is sitting in a bedside chair. OBJECTIVE: VITAL SIGNS: Heart rate is 106, blood pressure 135/82, respiratory rates in the teens, oximetry in the mid 90s. HEAD AND NECK: Unremarkable. LUNGS: Clear. HEART: Regular rhythm. ABDOMEN: Soft and nontender. EXTREMITIES: Without asymmetry or edema. Chest x-ray shows no new infiltrates or significant effusions. LABORATORY DATA: White count 15.2, hemoglobin 10.0 platelets 198. Sodium 136, potassium 3.8, chloride 103, bicarb 26, BUN 19, and creatinine 1.28. IMPRESSION: 1. Status post coronary artery bypass grafting with overnight ventilation. 2. History of hypertension. 3. History of diabetes. 4. He still has chest tube in place. 5. Intake and output is positive 1015 mL. He had 175 mL out of his mediastinal tubes. We will continue to follow. He is stable from a critical care standpoint. Job ID: [id number] MTDD
[2018-11-30] MEDS: Finasteride 5 MG TAB PO SCH (17:11)
[2018-11-30] MEDS: Silodosin 8 MG CAP PO SCH (17:11)
[2018-11-30] MEDS: Aspirin 325 MG TAB PO SCH (17:11)
--- NOTE | 2018-11-30 20:15 | PDOC.CTH ---
Cardiology Progress Note - Subjective Doing well. working with rehab. No BM yet and not passing gas. No abdominal pain. - Objective Vital Signs Temp Pulse Pulse BP BP Pulse Ox 11/30/18 16:00 98.9 F 11/30/18 14:25 104 H 107 H 110/67 135/82 96 11/30/18 12:00 100.0 F H Weight 276 lb 3.827 oz 11/29/18 11/30/18 12/01/18 06:59 06:59 06:59 Intake Total 2116 2235.9 1440 Output Total 1165 1220 290 Balance 951 1015.9 1150 - Physical Examination General/Neuro: alert & oriented x3, NAD Neck: no JVD present Lungs: unlabored respirations Heart: RRR Abdomen: NT/ND, other: (Positive bowel sounds. ) Extremities: + edema B - Telemetry Telemetry Rhythm: S tach - Labs Result Diagrams: 11/30/18 04:55 11/30/18 04:55 - Assessment/Plan 1. Multivessel CAD. 2. S/P CABG 3. CAD. 4. Hx of HTN 5. Hx of DMT2 PLAN: - Continue post op care. - Aspirin and statin for life. - On coreg. - BP will not allow ACEI for now. - Increase PT as tolerated. - Laxative given today.
[2018-11-30] MEDS: Atorvastatin Calcium 40 MG TAB PO SCH (20:46)
[2018-11-30] MEDS: Ondansetron PF 4 MG/2 ML Vial IVP PRN (21:44)
[2018-11-30] MEDS: Amiodarone 450 MG, Admixture Fee 1 EACH in Dextrose 5% in Water 250 ML IVPB SCH (22:40)
[2018-12-01] MEDS: Amiodarone 450 MG, Admixture Fee 1 EACH in Dextrose 5% in Water 250 ML IVPB SCH ×2 (06:16→18:30)
[2018-12-01] MEDS: Carvedilol 3.125 MG TAB PO SCH ×3 (08:00→17:44)
--- NOTE | 2018-12-01 09:56 | RAD ---
PORTABLE CHEST ONE VIEW: 12/01/2018 9:11 a.m. HISTORY: Fever post CABG. COMPARISON: Exam from the previous day. FINDINGS: Changes of median sternotomy are again seen. Left-sided subclavian central venous catheter remains i n place. No lobar consolidation, pneumothoraces, or large effusions are seen. The heart size is sta ble. There is suggestion of a plate of atelectasis in the right upper lobe. POS: OFF
[2018-12-01] MEDS: Docusate 100 MG CAP PO SCH ×2 (10:10→20:52)
[2018-12-01] MEDS: Triamterene/Hydrochlorothiazid 75 mg/50 mg Tablet PO SCH (10:10)
--- NOTE | 2018-12-01 12:37 | PRG ---
DATE OF SERVICE: 12/01/2018 SUBJECTIVE: Matheus Canales continues to improve. He has no complaints. OBJECTIVE: VITAL SIGNS: Heart rate is in 80s, blood pressure 119/67, respiratory rate is 15, oximetry is 95%. LUNGS: Clear. HEART: Regular rhythm, S1 and S2 are normal. ABDOMEN: Soft and nontender. EXTREMITIES: Without clubbing, cyanosis, or edema. LABORATORY DATA: No new lab today. IMPRESSION: Status post coronary artery bypass grafting, clinically doing well. Chest radiograph shows subsegmental atelectasis in the right upper lobe, but otherwise there is no change. He is stable in my opinion to move out of Critical Care Unit. Job ID: [id number]
--- NOTE | 2018-12-01 15:30 | PDOC.CTH ---
Cardiology Progress Note - Subjective He is doing well. He went into afib yesterday evening and was started on amiodarone drip and he has converted back to sinus. No BM yet but passing gas. - Objective Vital Signs Temp Pulse Ox 12/01/18 07:21 91 L 12/01/18 06:00 98.8 F Weight 276 lb 3.827 oz 11/30/18 12/01/18 12/02/18 06:59 06:59 06:59 Intake Total 2235.9 1885 Output Total 1220 1275 Balance 1015.9 610 - Physical Examination General/Neuro: alert & oriented x3, NAD Neck: no JVD present Lungs: CTA, unlabored respirations Heart: RRR Abdomen: NT/ND Extremities: + edema B (1+) - Telemetry Telemetry Rhythm: NSR - Labs Result Diagrams: 11/30/18 04:55 11/30/18 04:55 - Assessment/Plan 1. Multivessel CAD. 2. S/P CABG 3. CAD. 4. Hx of HTN 5. Hx of DMT2 6. Post op afib PLAN: - Continue post op care. - Aspirin and statin for life. - On coreg. - BP will not allow ACEI for now. - Increase PT as tolerated. - Will switch amiodarone to PO overnight.
[2018-12-01] MEDS: Ondansetron PF 4 MG/2 ML Vial IVP PRN (15:47)
[2018-12-01] MEDS: Finasteride 5 MG TAB PO SCH (17:44)
[2018-12-01] MEDS: Silodosin 8 MG CAP PO SCH (17:44)
[2018-12-01] MEDS: Aspirin 325 MG TAB PO SCH (17:44)
[2018-12-01 19:20] VITALS: BMI 35.4
[2018-12-01] MEDS: Atorvastatin Calcium 40 MG TAB PO SCH (20:52)
[2018-12-01] MEDS: Amiodarone 200 MG TAB PO SCH (20:52)
[2018-12-02] MEDS: Amiodarone 200 MG TAB PO SCH ×2 (08:33→21:01)
[2018-12-02] MEDS: Carvedilol 3.125 MG TAB PO SCH ×2 (08:34→16:33)
[2018-12-02] MEDS: Docusate 100 MG CAP PO SCH ×2 (08:34→21:01)
[2018-12-02] MEDS: Triamterene/Hydrochlorothiazid 75 mg/50 mg Tablet PO SCH (08:34)
[2018-12-02] MEDS: Insulin Regular 300 UNITS/3 ML VIAL SC PRN ×2 (12:10→16:38)
--- NOTE | 2018-12-02 13:08 | PRG ---
DATE OF SERVICE: 12/02/2018 SUBJECTIVE: This morning, he is awake, alert, responsive, some difficulty breathing. OBJECTIVE: VITAL SIGNS: Saturations are 92% on 2 L, respiratory rate 18, temperature 98, and blood pressure 124/60. CHEST: Decreased breath sounds. No wheezing. CARDIAC: Normal S1 and S2. No gallop. ABDOMEN: No masses. DIAGNOSTIC DATA: Last chest x-ray showed right upper lung atelectatic changes. IMPRESSION: Status post coronary artery bypass graft, right upper lung atelectasis, and obesity. PLAN: Continue PT, supportive care. Neb treatments scheduled. We will follow. Job ID: [id number]
--- NOTE | 2018-12-02 13:08 | PDOC.CTH ---
Cardiology Progress Note - Subjective The pt seen and examined. No overnight events. No cardiac complaints. Today he walked around nursing station without any cardiac complaints. - Objective Vital Signs Temp Pulse Pulse Pulse Resp BP BP 12/02/18 12:18 98.2 F 75 18 12/02/18 09:39 85 80 175/78 H 133/60 12/02/18 07:59 97.9 F 77 18 12/02/18 04:00 98.5 F 70 18 BP Pulse Ox Pulse Ox Pulse Ox 12/02/18 12:18 124/60 92 L 12/02/18 09:39 92 L 92 L 12/02/18 07:59 123/56 L 92 L 12/02/18 04:00 108/60 92 L Weight 286 lb 12/01/18 12/02/18 12/03/18 06:59 06:59 06:59 Intake Total 1885 895 Output Total 1275 1775 Balance 610 -880 - Physical Examination General/Neuro: alert & oriented x3 Neck: no JVD present Lungs: CTA (diminished at bases) Heart: RRR Abdomen: soft Extremities: other: (No edema; MS STEWART) - Telemetry Telemetry Rhythm: SR - Labs Result Diagrams: 11/30/18 04:55 11/30/18 04:55 - Assessment/Plan 1. 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 Post op Afib on 12/01/2018 - He converted back to SR in same day. Remains in SR; On Amiodarone 400mg BID since 12/01/2018. On ASA 325mg qd; may start CHRISTOS with stable VS 3. HTN - stable 4. DM type 2 5. Hx of DMT2 6. Post op afib MAR reviewed Pt. seen and eval. by me.I agree with the A/P by the CLINICAL FIELD SPECIALIST. We have discussed the plan. doing well s/p CABG. chest clear. RRR. No significant edema. Review of Systems - Review of Systems Constitutional: reports: no symptoms reported EENTM: reports: no symptoms reported Respiratory: reports: no symptoms reported Cardiac (ROS): reports: no symptoms reported ABD/GI: reports: no symptoms reported : reports: no symptoms reported Musculoskeletal: reports: no symptoms reported
[2018-12-02] MEDS: Aspirin 325 MG TAB PO SCH (16:33)
[2018-12-02] MEDS: Silodosin 8 MG CAP PO SCH (16:33)
[2018-12-02] MEDS: Finasteride 5 MG TAB PO SCH (16:33)
[2018-12-02] MEDS: Atorvastatin Calcium 40 MG TAB PO SCH (21:01)
[2018-12-03] MEDS: Docusate 100 MG CAP PO SCH ×2 (08:04→21:33)
[2018-12-03] MEDS: Carvedilol 3.125 MG TAB PO SCH (08:04)
[2018-12-03] MEDS: Amiodarone 200 MG TAB PO SCH ×2 (08:04→21:33)
[2018-12-03] MEDS: Triamterene/Hydrochlorothiazid 75 mg/50 mg Tablet PO SCH (08:05)
[2018-12-03] MEDS ORDERED: Carvedilol 3.125 MG TAB PO SCH (10:15)
[2018-12-03] MEDS ORDERED: Carvedilol 6.25 MG TAB PO SCH (10:30)
[2018-12-03] MEDS: Insulin Regular 300 UNITS/3 ML VIAL SC PRN ×2 (11:19→17:36)
--- NOTE | 2018-12-03 13:22 | PRG ---
DATE OF SERVICE: 12/03/2018 SUBJECTIVE: Status post CABG, doing well. No shortness of breath. No pain. OBJECTIVE: VITAL SIGNS: Temperature is 98, pulse 80, respiratory rate 18, saturations are 90% on room air, blood pressure 145/68. CHEST: No wheezing or crackles. CARDIAC: Normal S1 and S2. No gallops. ABDOMEN: No masses. IMPRESSION: 1. Status post coronary artery bypass graft. 2. Chronic obstructive pulmonary disease, stable. PLAN: PT and supportive care. Job ID: [id number]
--- NOTE | 2018-12-03 15:11 | PDOC.CTH ---
Cardiology Progress Note - Subjective The pt seen and examined. No overnight events. No cardiac complaints. - Objective Vital Signs Temp Pulse Pulse Pulse Resp BP BP 12/03/18 13:46 75 16 12/03/18 12:55 83 76 100/49 L 112/60 12/03/18 11:15 98.2 F 80 18 12/03/18 08:52 101 H 78 136/78 139/63 12/03/18 07:45 75 18 12/03/18 07:02 12/03/18 07:01 98.2 F 70 18 12/03/18 04:00 98.4 F 72 18 BP Pulse Ox Pulse Ox Pulse Ox 12/03/18 13:46 94 L 12/03/18 12:55 98 96 12/03/18 11:15 145/68 H 96 12/03/18 08:52 99 93 L 12/03/18 07:45 93 L 12/03/18 07:02 94 L 12/03/18 07:01 134/63 94 L 12/03/18 04:00 114/58 L 94 L Weight 284 lb 12/02/18 12/03/18 12/04/18 06:59 06:59 06:59 Intake Total 895 1440 Output Total 1775 300 Balance -880 1140 - Physical Examination General/Neuro: alert & oriented x3 Neck: no JVD present Lungs: CTA Heart: RRR Abdomen: soft Extremities: other: (No edema) - Telemetry Telemetry Rhythm: SR - Labs Result Diagrams: 11/30/18 04:55 11/30/18 04:55 - Assessment/Plan 1. 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 Post op Afib on 12/01/2018 - He converted back to SR in same day. Remains in SR; On Amiodarone 400mg BID since 12/01/2018. On ASA 325mg qd; may start CHRISTOS with stable VS 3. HTN - stable 4. DM type 2 5. COPD - stable MAR reviewed * the pt may d/c on Tuesday. Dr Griffiths's pt. Pt. seen and eval. by me. I agree with the A/P by the ROLL CLAMP OPERATOR. Exam: chest clear, RRR. gjm Review of Systems - Review of Systems Constitutional: reports: no symptoms reported EENTM: reports: no symptoms reported Respiratory: reports: no symptoms reported Cardiac (ROS): reports: no symptoms reported ABD/GI: reports: no symptoms reported : reports: no symptoms reported Musculoskeletal: reports: no symptoms reported
[2018-12-03] MEDS: Aspirin 325 MG TAB PO SCH (16:30)
[2018-12-03] MEDS: Silodosin 8 MG CAP PO SCH (16:30)
[2018-12-03] MEDS: Carvedilol 6.25 MG TAB PO SCH (16:30)
[2018-12-03] MEDS: Finasteride 5 MG TAB PO SCH (16:31)
[2018-12-03] MEDS: Atorvastatin Calcium 40 MG TAB PO SCH (21:33)
[2018-12-04] MEDS: Carvedilol 6.25 MG TAB PO SCH (08:58)
[2018-12-04] MEDS: Amiodarone 200 MG TAB PO SCH (08:58)
[2018-12-04] MEDS: Triamterene/Hydrochlorothiazid 75 mg/50 mg Tablet PO SCH (08:58)
[2018-12-04] MEDS: Docusate 100 MG CAP PO SCH (09:00)
[2018-12-04 09:51] VITALS: TEMP 98.7
--- NOTE | 2018-12-04 12:32 | PDOC.CTH ---
Cardiology Progress Note - Subjective Doing very well. No new issues. Having normal BM's. Working with PT without issues. - Objective Vital Signs Temp Pulse Resp BP BP BP Pulse Ox 12/04/18 08:58 126/61 12/04/18 08:50 98.7 F 80 18 126/61 93 L 12/04/18 08:45 93 L 12/04/18 07:19 75 16 92 L 12/04/18 03:15 97.3 F L 81 20 126/75 94 L Weight 284 lb 12/03/18 12/04/18 12/05/18 06:59 06:59 06:59 Intake Total 1440 1460 Output Total 300 240 Balance 1140 1220 - Physical Examination General/Neuro: alert & oriented x3, NAD Neck: no JVD present Lungs: unlabored respirations Heart: RRR Abdomen: NT/ND Extremities: + edema B (1+) - Telemetry Telemetry Rhythm: NSR - Labs Result Diagrams: 11/30/18 04:55 11/30/18 04:55 - Assessment/Plan 1. Multivessel CAD. 2. S/P CABG 3. CAD. 4. Hx of HTN 5. Hx of DMT2 6. Post op afib, in sinus. PLAN: - Aspirin and statin for life. - On coreg. - BP will not allow ACEI for now. - Increase PT as tolerated. - Amiodarone PO load at 400 mg BID for 5 days then 200 mg daily. Total of one month. - May discharge home. - Follow up in 1 month in the office.
--- NOTE | 2018-12-04 14:07 | PRG ---
DATE OF SERVICE: 12/04/2018 SUBJECTIVE: Matheus Canales is in no distress. OBJECTIVE: VITAL SIGNS: He is afebrile. Heart rate 80, blood pressure 126/61, respiratory rate 18, oximetry is 93% on room air. LUNGS: Clear. HEART: Regular rhythm. ABDOMEN: Soft. LABORATORY STUDIES: No new lab other than blood glucoses. IMPRESSION: 1. Status post coronary artery bypass grafting. 2. Obesity with BMI of 36 at 6 feet and 2 inches. I have recommended follow up with me in 2 to 3 months once he has recovered from his surgery for evaluation for an outpatient sleep study. 3. Diabetes. 4. History of reflux disease. 5. Hypertension. 6. Chronic kidney disease. 7. History of multiple drug allergies. I will be happy to see him as an outpatient. I have given him my number. Job ID: [id number]
[2018-12-04 14:36] VITALS: BP 152/68
--- NOTE | 2018-12-05 02:02 | DIS ---
DATE OF ADMISSION: 11/28/2018 DATE OF DISCHARGE: 12/04/2018 PRINCIPAL DIAGNOSIS: Coronary artery disease. SECONDARY DIAGNOSES: Urinary retention and atrial fibrillation. Secondary diagnoses present but not specifically addressed; hypertension, diabetes, and BPH. PROCEDURES PERFORMED: Coronary artery bypass grafting x4. Left internal mammary artery to the distal LAD and reverse greater saphenous vein graft from the aorta to the diagonal to the obtuse marginal and the PDA. HISTORY OF PRESENT ILLNESS AND HOSPITAL COURSE: The patient is a 73-year-old diabetic man with a history of angina elicited during an evaluation for urinary obstructive symptoms. Stress test was abnormal. Cardiac catheterization demonstrated 3-vessel coronary artery disease and he was referred for coronary artery bypass grafting, this was done on 11/28/2018. He was extubated the morning of surgery and his Levophed was weaned off at about the same time. He had some mild orthostatic symptoms and some mild tachycardia during that day, so he is left in the intensive care unit, but transferred out the next day. His Navas was removed on postoperative day 1 and low-dose Coreg was started. That evening, he was unable to urinate and Navas catheter was replaced, to be removed on the morning of postop day #4. That same night, he also had a few hours of atrial fibrillation that was easily brought under control and converted to sinus rhythm on IV amiodarone and he is switched to oral. He had no difficulties with urination after the catheter had been removed second time and he had no recurrence of low-grade fever that he had had at about that same time. He is now being discharged home to resume his Maxzide and aspirin. His clonidine is being held. Coreg 6.25 mg b.i.d. has been added. His Lipitor has been increased to 80 mg at bedtime based on the severity of plaque distribution in his coronaries found at the time of surgery. He has been written a prescription for Vicodin as needed for pain and I will plan on seeing him in the office in about 2 weeks' time. Job ID: [id number]
--- NOTE | 2018-12-05 16:04 | PQF ---
AMAURY BARRIOS VIRA HOLLINS [id number] CLINICAL DOCUMENTATION CLARIFICATION FORM: POST DISCHARGE Please exercise your independent, professional judgment in responding to the clarification form. Clinical indicators are provided on the bottom of this form for your review Please check appropriate box(s): HEART FAILURE: A. TYPE: [ ] Systolic / HFrEF [ ] Diastolic / HFpEF [ ] Combined Systolic / Diastolic B. ACUITY [ ] Acute [ ] Acute on Chronic [ ] Chronic [ x ] Other diagnosis S/P CABG [ ] Unable to determine In addition, please specify: Present on Admission (POA): [ ] Yes [ x ] No [ ] Unable to determine CLINICAL INDICATORS - SIGNS / SYMPTOMS / LABS 11/28 Consult, Dr Griffiths, "Acute systolic heart failure" 11/24 H&P/Consult, recent ECHO showing an EF of 45% to 50% 11/28 CXR results, "Pulmonary vascular congestion" 12/02 Progress note, "Post op afib on 12/01 -he converted back to SR in the same day " RISKS: 11/24 H&P/ Consult History of CAD/ischemic heart disease, CABG 11/28 Hypertension TREATMENTS: 11/29 Progress note Plan: " BB and ACEI once BP allows" (This form is maintained as a part of the permanent medical record) 2015 [employer] All Rights Reserved [email or web address] [phone] [email or web address]
== END 2018-12-04 13:15 | disposition home or self-care (01) | DRG 236 ==
LOC: SURG A 05:43 → CCU 09:15 → 2NO 12-01 19:01
PROVIDERS: ADMIT Thoracic Surgery (Cardiothoracic Vascular Surgery); ATTEND Thoracic Surgery (Cardiothoracic Vascular Surgery)
PROC: 02100Z9 Bypass Coronary Artery, One Artery from Left Internal Mammary, Open Approach (ICD-10-PCS; principal; 2018-11-28)
PROC: 021209W Bypass Coronary Artery, Three Arteries from Aorta with Autologous Venous Tissue, Open Approach (ICD-10-PCS; 2018-11-28)
PROC: 06BQ4ZZ Excision of Left Saphenous Vein, Percutaneous Endoscopic Approach (ICD-10-PCS; 2018-11-28)
PROC: 5A1221Z Performance of Cardiac Output, Continuous (ICD-10-PCS; 2018-11-28)
DX: I25.118 Atherosclerotic heart disease of native coronary artery with other forms of angina pectoris (principal); E87.2 Acidosis; I95.89 Other hypotension; I12.9 Hypertensive chronic kidney disease with stage 1 through stage 4 chronic kidney disease, or unspecified chronic kidney disease; N18.9 Chronic kidney disease, unspecified; K21.9 Gastro-esophageal reflux disease without esophagitis; E11.22 Type 2 diabetes mellitus with diabetic chronic kidney disease; M19.90 Unspecified osteoarthritis, unspecified site; I48.91 Unspecified atrial fibrillation; E66.9 Obesity, unspecified; E11.42 Type 2 diabetes mellitus with diabetic polyneuropathy; N40.1 Benign prostatic hyperplasia with lower urinary tract symptoms; R33.8 Other retention of urine; Z87.891 Personal history of nicotine dependence; Z88.1 Allergy status to other antibiotic agents; Z88.8 Allergy status to other drugs, medicaments and biological substances; Z68.36 Body mass index [BMI] 36.0-36.9, adult
CPT/HCPCS: 36416; 36430; 71045; 71046; 80048; 80061; 82805; 85025; 85027; 85610; 85730; 86850; 86900; 86901; 93005; 93010; 93458; 93798; 94002; 94003; 94640; 99152; 99153; C1769; J0282; J0360; J0690; J1642; J1644; J1815; J1825; J2001; J2150; J2250; J2270; J2405; J2440; J2704; J2720; J3010; J3370; J3475; J3480; J3490; J7050; J7070; J7620; P9045; Q9967; S0017; S0028

== ENCOUNTER 2019-07-12 13:02 | Outpatient (CLI) | payer MEDICARE, BC ==
--- NOTE | 2019-07-12 14:04 | ULT ---
BILATERAL RENAL ULTRASOUND: HISTORY: Neoplasm of bladder of unspecified nature. FINDINGS: The right kidney measures 10.3 cm in length and the left kidney measures 10.4 cm in length. No focal mass or hydronephrosis is seen on either side. Cortical echogenicity and thickness are normal. The pre-void bladder volume measures 320 mL with a post-void residual of 47 mL. IMPRESSION: 1. Normal renal ultrasound. 2. Significant post-void residual in the urinary bladder. POS: LACEY
== END 2019-07-12 13:03 | disposition home or self-care (01) ==
LOC: BICULT 13:02
PROVIDERS: ATTEND Urology
DX: D49.4 Neoplasm of unspecified behavior of bladder (principal)
CPT/HCPCS: 76770

== ENCOUNTER 2023-08-25 06:26 | Day surgery (SDC) | payer MEDICARE ==
[2023-08-24 13:43] VITALS: BMI 34.0
[~2023-08-25 06:26] MED LIST: Fluorouracil 100 MG, Enoxaparin 25 MG, EPINEPHrine 0.3 MG in Ophthalmic Irrigation Solu... IRR SCH
[2023-08-25] MEDS ORDERED: Cyclopentolate 1% Opth Drop 2 ML BOT ONE (07:07)
[2023-08-25] MEDS ORDERED: PHENYLephrine 2.5% Ophth Soln 15 ml Bottle ONE (07:07)
[2023-08-25] MEDS ORDERED: fentaNYL 50 mcg/mL 1 mL Vial ONE (07:38)
[2023-08-25] MEDS ORDERED: Midazolam HCl 2 mg/2 ml Vial ONE (07:38)
[2023-08-25] MEDS ORDERED: Triamcinolone 40 MG/ML VIAL ONE (07:55)
[2023-08-25] MEDS ORDERED: PROPOFOL 200 MG/20 ML VIAL ONE (07:55)
[2023-08-25] MEDS ORDERED: Lidocaine 1% PF 5 ML VIAL ONE (07:55)
[2023-08-25] MEDS ORDERED: Lidocaine 4% PF 5 ML AMP ONE (07:55)
[2023-08-25] MEDS ORDERED: Maxitrol 0.1% Opth Oint 3.5 GM TUBE ONE (07:55)
[2023-08-25] MEDS ORDERED: Bupivacaine 0.75% 10 ML VIAL ONE (07:55)
[2023-08-25] MEDS ORDERED: CEFAZOLIN 1 GM VIAL ONE (07:55)
== END 2023-08-25 09:32 | disposition home or self-care (01) ==
LOC: SDC 06:26
PROVIDERS: ATTEND Ophthalmology Retina Specialist
PROC: 08T43ZZ Resection of Right Vitreous, Percutaneous Approach (ICD-10-PCS; principal; 2023-08-25)
DX: H33.021 Retinal detachment with multiple breaks, right eye (principal); Z88.1 Allergy status to other antibiotic agents; Z88.8 Allergy status to other drugs, medicaments and biological substances
CPT/HCPCS: 67025; 67041; J3010; J0171; J1650; J2250; J9190